=== PATIENT | female | born 1985 | race Caucasian/White ===

== ENCOUNTER 2017-04-30 15:02 | Emergency (ER) | payer OTHER ==
[~2017-04-30] VITALS: Ht 160 cm; Wt 78.8 kg
[2017-04-30 15:06] VITALS: Ht 160 cm; Wt 78.8 kg
--- NOTE | 2017-04-30 16:07 | ERA ---
ER Documentation Chief Complaint Date/Time DATE: 04/30/17 TIME: 16:03 Chief Complaint RIGHT WRIST PAIN X 3 MOS HPI This is a 32-year-old female presenting 3 months status post wrist pain. Patient states that the wrist pain is worse with movements. Injuries aggravated while playing basketball and dancing. Patient denies any numbness or tingling. Patient was diagnosed with carpal tunnel 1 year ago before the onset of the specific injury. Patient has no other complaints. ROS All systems reviewed and are negative except as per history of present illness. Medications Home Meds No Active Prescriptions or Reported Meds Allergies Allergies: Coded Allergies: No Known Allergy (Unverified , 10/03/14) PMhx/Soc Hx Alcohol Use: No Hx Substance Use: No Hx Tobacco Use: No Physical Exam Vitals Vital Signs Date Time Temp Pulse Resp B/P Pulse Ox O2 Delivery O2 Flow Rate FiO2 04/30/17 15:06 98.1 84 18 119/63 99 Physical Exam Const: Well-appearing well-developed 32-year-old female in no acute distress Head: Atraumatic Eyes: Normal Conjunctiva ENT: Normal External Ears, Nose and Mouth. Neck: Full range of motion..~ No meningismus. Resp: Clear to auscultation bilaterally Cardio: Regular rate and rhythm, no murmurs Abd: Soft, non tender, non distended. Normal bowel sounds Skin: No petechiae or rashes Back: No midline or flank tenderness Ext: Limited active and passive ulnar deviation of the right wrist with pain at the ulnar styloid. No tenderness palpation. Negative Vasyl test. Pain was reproduced with extension of the wrist with pressure. Pronation supination did not reproduce pain. No cyanosis, or edema Neur: Awake and alert Psych: Normal Mood and Affect Procedures/MDM Well-appearing 32-year-old female presenting 3 months status post onset of wrist pain with no history of injury or trauma. History of carpal tunnel but denies any numbness or tingling in the affected area. Patient is right-handed and the pain is worse with playing basketball. Patient refused any pain medication. Patient refused an x-ray to evaluate for bony pathology. The x- ray was read by the radiologist given the following impression: IMPRESSION: 1. No acute osseous abnormality. At this time I very low suspicion for bony involvement or neurovascular compromise. Patient will be equipped with a splint and be referred to orthopedic for follow-up. I suggested that the patient follow-up with family doctor first for more formal evaluation. Patient's vitals are stable and will be discharged at this time with discharge instructions return precautions as well as a list of orthopedic referrals. Departure Diagnosis: Primary Impression: Wrist injury Qualified Code: S69.91XA - Wrist injury, right, initial encounter Additional Impression: Pain in wrist Qualified Code: M25.531 - Right wrist pain Condition: Stable Additional Instructions: Follow up with your PCP within the next 1-3 days for a more thorough evaluation and a possible referral to a specialist. Return the the emergency department immediately if symptoms worsen or change. If you have any questions regarding medications, ask your pharmacist or us before you leave. If any adverse reactions occur while taking your medications, discontinue the treatment and return to the emergency department immediately. Take your medications as directed, and complete the entire course of treatment. NICHOLAS BARRETO PA-C Apr 30, 2017 16:07
--- NOTE | 2017-04-30 16:40 | RADRPT ---
PROCEDURE: XR Wrist. CLINICAL INDICATION: Wrist pain TECHNIQUE: AP, lateral, scaphoid and oblique views of the right wrist were performed. COMPARISON: No prior studies are available for comparison. FINDINGS: There is no acute osseous or articular abnormality. No evidence for fracture. Bone mineral density is preserved. The articular surfaces are smooth without evidence of marginal erosions. Carpal align ment is maintained. The soft tissues are intact without evidence of calcifications. IMPRESSION: 1. No acute osseous abnormality. RPTAT: PP .Tarik Koch MD, MD Date Time Electronically viewed and signed by .Tarik Koch MD, MD on 04/30/2017 16:39 .d/
[2017-04-30] MEDS ORDERED: IBUP400T22 PO (16:52)
== END 2017-04-30 17:08 | disposition home or self-care (01) ==
LOC: FTE 15:02
DX: S69.91XA Unspecified injury of right wrist, hand and finger(s), initial encounter (principal); X58.XXXA Exposure to other specified factors, initial encounter; Y92.9 Unspecified place or not applicable
CPT/HCPCS: 29125; 73110; Z7502